=== PATIENT | female | born 1955 | race Caucasian/White ===

== ENCOUNTER 2024-12-11 09:39 | Outpatient (CLI) | payer OTHER | END 2024-12-11 09:40 | disposition home or self-care (01) | LOC: CSHULT 09:39 | PROVIDERS: ATTEND Nurse Practitioner Family | DX: R10.11 Right upper quadrant pain (principal); K80.20 Calculus of gallbladder without cholecystitis without obstruction | CPT/HCPCS: 76705 ==

== ENCOUNTER 2025-01-17 06:35 | Observation (INO) | payer OTHER ==
[2025-01-13 08:44] VITALS: BMI 33.3
[2025-01-17] MEDS ORDERED: CEFAZOLIN 2 GM VIAL ONE (07:19)
[2025-01-17] MEDS ORDERED: Bupivacaine/Epinephrine 0.25% 30 ML VIAL ONE (07:19)
[2025-01-17] MEDS ORDERED: PROPOFOL 20 ML ONE (07:56)
[2025-01-17] MEDS ORDERED: Lidocaine 1% PF 5 ML VIAL ONE (07:58)
[2025-01-17] MEDS ORDERED: Rocuronium Bromide 10 MG/ML (10ML VIAL) ONE (07:58)
[2025-01-17] MEDS ORDERED: SUGAMMADEX SODIUM 200 MG/2 ML VIAL ONE (09:21)
[2025-01-17] MEDS ORDERED: PHENYLEPHRINE-NS 100 MCG/ML 10 ML SYRINGE ONE (09:27)
[2025-01-17] MEDS ORDERED: Dextrose 50% Abboject 50 ML SYRINGE SLOW IVP PRN (10:39)
[2025-01-17] MEDS ORDERED: hydrALAZINE 20 MG/ML VIAL SLOW IVP PRN (10:39)
[2025-01-17] MEDS ORDERED: Ondansetron PF 4 MG/2 ML Vial IVP PRN (10:39)
[2025-01-17] MEDS ORDERED: Glucagon 1 MG/ML KIT IM PRN (10:39)
[2025-01-17] MEDS ORDERED: HYDROmorphone 0.5 MG/0.5 ML SYRINGE ONE (11:15)
[2025-01-17] MEDS: Acetaminophen 500 MG TAB PO SCH (13:40)
[2025-01-17] MEDS: metFORMIN 500 MG TAB PO SCH (20:48)
[2025-01-18 04:17] LABS: #Basophils 0.04 10x3/uL (0.0-0.2); #Eosinophils Less than 0.03 10x3/uL (0.0-0.5); #Monocytes 1.50 10x3/uL (0.0-1.1); #Neutrophils 13.20 10x3/uL (1.5-8.4); %Basophils 0.3 % (0.0-2.0); %Eosinophils 0.0 % (0.0-6.0); %Lymphocytes 6.0 % (18.0-47.0); %Monocytes 9.5 % (0.0-10.0); %Neutrophils 83.8 % (40.0-75.0); Hematocrit 27.8 % (34.9-44.5); Hemoglobin 8.8 g/dL (12.0-15.5); Mean Corpuscular Hemoglobin 26.6 pg (27.0-33.0); Mean Corpuscular Volume 84.0 fL (81.6-98.3); Platelet Count 393 10x3/uL (150-450); Red Blood Cell (RBC) Count 3.31 10x6/uL (3.90-5.03); White Blood Cell (WBC) Count 15.75 10x3/uL (3.5-10.5)
[2025-01-18 04:34] LABS: ALT (SGPT) 28 U/L (Less than 34); AST (SGOT) 38 U/L (11-34); Albumin 3.4 g/dL (3.1-4.5); Alkaline Phosphatase 57 U/L (40-110); Anion Gap 14 mmol/L (10-20); BUN (Urea Nitrogen) 22 mg/dL (9.8-20.1); Bilirubin, Total 0.8 mg/dL (0.3-1.2); Calc. Creatinine Clearance 38 mL/min (70-130); Calcium 9.2 mg/dL (7.8-10.44); Carbon Dioxide 25 mmol/L (23-31); Chloride 99 mmol/L (98-107); Globulin 3.6 g/dL (2.4-3.5); Glucose 190 mg/dL (80-115); Potassium 4.9 mmol/L (3.5-5.1); Sodium 133 mmol/L (136-145)
[2025-01-18] MEDS: Enoxaparin 40 MG (0.4 mL) SYRINGE SC SCH (06:18)
[2025-01-18] MEDS: Losartan 50 MG TAB PO SCH (08:12)
[2025-01-18] MEDS: Magnesium Oxide 400 MG TAB PO SCH (08:12)
[2025-01-18] MEDS: glipiZIDE 10 MG TAB PO SCH (08:12)
[2025-01-18] MEDS: Pantoprazole 40 MG DR.TAB PO SCH (08:12)
[2025-01-18] MEDS: oxyCODONE 5 MG TAB PO PRN (08:19)
[2025-01-18 14:52] VITALS: BP 161/62; TEMP 98.8
== END 2025-01-18 13:00 | disposition home or self-care (01) ==
LOC: CSHSDC 06:35 → CSHTELE 12:28
PROVIDERS: ADMIT Surgery; ATTEND Surgery
PROC: 0FT44ZG Resection of Gallbladder, Percutaneous Endoscopic Approach, Hand-Assisted (ICD-10-PCS; principal; 2025-01-17)
DX: K80.10 Calculus of gallbladder with chronic cholecystitis without obstruction (principal); Z79.82 Long term (current) use of aspirin; Z88.6 Allergy status to analgesic agent; Z88.8 Allergy status to other drugs, medicaments and biological substances; Z90.710 Acquired absence of both cervix and uterus; Z98.890 Other specified postprocedural states
CPT/HCPCS: 47562; 80053; 82962 ×2; 85025; 94760; C1889 ×2; J0694 ×2; J1100; J1171; J1650; J2704; J7030 ×2; S2900; 36415; 36416; 88304